=== PATIENT | female | born 2000 | race Caucasian/White ===

== ENCOUNTER 2022-02-27 15:14 | Outpatient (REF) | payer MEDICAID, SELFPAY ==
--- NOTE | 2022-02-27 14:00 | PAPFT_PTH ---
PATIENT: Katharine Guajardo LOC: [facility] U#:[id number] AGE/SX: 21/F ROOM: RE02/27/[address]: Susy Vargas NP : 2000 BED: DIS: 02/27/2022 SPEC #: [id number] RECD: 02/27/22 17:20 STATUS: MEDARDO COSME #: [id number] YONY: 02/27/22 14:[address]: Susy Vargas NP DEPT: [facility] Cytology RECD BY: Deana Narvaez ENTERED: 02/27/22 17:20 SP TYPE: PAPFT OTHR DR: Unknown,Unknown Tissues: 1 - CX/ENDOCX FOR PAP SMEARS Procedures: PAP THIN PREP/UVM Screening Comments: [id number] (CHLAMYDIA/GC)
[2022-02-28 14:57] LABS: Chlamydia Result Negative (Negative); GC Result Negative (Negative)
== END 2022-02-27 15:15 | disposition home or self-care (01) ==
LOC: LBN 15:14
PROVIDERS: Visit Provider Nurse Practitioner Women's Health
DX: Z11.3 Encounter for screening for infections with a predominantly sexual mode of transmission (principal); Z12.4 Encounter for screening for malignant neoplasm of cervix
CPT/HCPCS: 87491; 87591; 88142

== ENCOUNTER 2023-03-06 08:44 | Outpatient (REF) | payer MEDICAID, SELFPAY ==
[2023-03-07 14:12] LABS: Chlamydia Result Negative (Negative); GC Result Negative (Negative)
== END 2023-03-06 08:45 | disposition home or self-care (01) ==
LOC: LBN 08:44
PROVIDERS: Visit Provider Nurse Practitioner Women's Health
DX: Z11.3 Encounter for screening for infections with a predominantly sexual mode of transmission (principal)
CPT/HCPCS: 87491; 87591

== ENCOUNTER 2024-08-08 11:06 | Emergency (ER) | payer SELFPAY ==
[2024-08-08 11:07] VITALS: BP 148/95; PULSE 67; RESP 16; TEMP 36.6; O2SAT 98
--- OUTSIDE RECORDS SUMMARY | 2024-08-08 11:15 | XMS_ITS | Encounter Summary ---
Author Organization [facility] [place] [address] Care Team Providers Care Flat Finisher Name Role Phone Milena Hawkins APRN Primary Care Provider [phone]- [phone] Reason for Referral * Consultation (Routine) - Authorized Specialty Diagnoses / Procedures Referred By Sergio phan Referred To Contact Dermatology Diagnoses Irritant contact dermatitis, unspecified trigger Milena Hawkins APRN [address] [place] [address] [facility] Dermatology [address] [place] [address] Referral ID Status Reason Start Date Expiration Date Visits Requested Visits Authorized [id number] Authorized Consult, Test & Treat PCP Updated and/or Approved 06/25/2025 6 6 Encounter Details Date Type Department Care Team (Late st Contact Info) Description 07/21/2024 Transcribe Orders eDH Incoming Referrals [phone] Milena Hawkins APRN [address] [place], [place] [id number] Irritant contact dermatitis, unspecified trigger Social History Tobacco Use Types Packs/Day Years Used Date Smoking Tobacco: Never Assessed Sex and Gender Information Value Date Recorded Sex Assigned at Not on file Gender Identity Not on file Sexual Orientation Not on file documented as of this encounter Plan of Treatment Scheduled Referrals Name Type Priority Associated Diagnoses Orde r Schedule Referral to Dermatology Outpatient Referral Routine Irritant contact dermatitis, unspecified trigger Ordered: 07/21/2024 documented as of this encounter Visit Diagnoses Diagnosis Irritant contact dermatitis, unspecified trigger documented in this encounter Care Teams Flat Finisher Relationship Specialty Start Date End Date Shruthi, Milena Aguilera, HORTICULTURAL THERAPIST [address] [place] [address] PCP - General Internal Medicine 07/21/24 documented as of this encounter
--- OUTSIDE RECORDS SUMMARY | 2024-08-08 11:15 | XMS_ITS | Encounter Summary ---
Author Organization [facility] Address [address] [place] [address] Care Team Providers Care Economic Analyst Name Role Phone Unavailable Primary Care Provider Unavailabl e Encounter Details Date Type Department Care Team (Late st Contact Info) Description 03/06/2023 Lab Requisition [facility] Pathology & Laboratory Medicine - [facility] [address] [place] [address] Outr Resulting Lab, Provider Social History Tobacco Use Types Packs/Day Years Used Date Smoking Tobacco: Never Assessed Comments Unknown Sex and Gender Information Value Date Recorded Sex Assigned at Not on file Legal Sex Female 15:35 EDT Gender Identity Not on file Sexual Orientation Not on file documented as of this encounter Plan of Treatment Not on file documented as of this encounter Procedures Procedure Name Priority Date/Time Associated Diagnosis Comments CHLAMYDIA/N. GONORRHOEAE AMPLIFIED NUCLEIC ACID Routine 03/06/2023 8:30 EDT documented in this encounter Results * CHLAMYDIA/N. GONORRHOEAE AMPLIFIED RNA (03/06/2023 8:30 EDT) Neisseria gonorrhoeae Result Negative Negative 03/07/2023 14:[address] [facility] Chlamydia trachomatis Result Negative Negative 03/07/2023 14:[address] [facility] Urine URINE / Unknown 03/06/2023 8 :30 EDT 03/06/2023 17:[address] [facility] - 03/07/2023 14:07 EDT A first catch urine specimen is acceptable for detection of Gonorrhea and Chlamydia, but might detect up to 10% fewer infections when compared with vaginal and endocervical swab samples. us Provider Outr Resulting Lab MICROBIOLOGY - GENER AL ORDERABLES Final Result [facility] [address] [place] [address] documented in this encounter Visit Diagnoses Not on filedocumented in this encounter
--- OUTSIDE RECORDS SUMMARY | 2024-08-08 11:15 | XMS_ITS | Referral Summary ---
Author Organization [facility] Address [address] [place] [address] Care Team Providers Care Sorting Supervisor Name Role Phone Unavailable Primary Care Provider Unavailabl e Social History Tobacco Use Types Packs/Day Years Used Date Smoking Tobacco: Never Assessed Comments Unknown Sex and Gender Information Value Date Recorded Sex Assigned at Not on file Legal Sex Female 15:35 EDT Gender Identity Not on file Sexual Orientation Not on file Plan of Treatment Not on file
--- OUTSIDE RECORDS SUMMARY | 2024-08-08 11:15 | XMS_ITS | Clinical Summary ---
Author Organization [facility] Address [facility] [place] [address] Care Team Providers Care Utility Repairer Name Role Phone Milena Hawkins APRN Primary Care Provider +1- [phone] Encounters Date Type Department Care Team Description 07/21/2024 Transcribe Orders eDH Incoming Referrals [phone] Milena Hawkins APRN Irritant contact dermatitis, unspecified trigger from Last 3 Months Social History Tobacco Use Types Packs/Day Years Used Date Smoking Tobacco: Never Assessed Sex and Gender Information Value Date Recorded Sex Assigned at Not on file Gender Identity Not on file Sexual Orientation Not on file Plan of Treatment Health Maintenance Due Date Last Done Comments HPV vaccine (1 - 3-dose series) 2013 HIV screen 2016 Hepatitis C Screening 2016 Hepatitis B vaccine (0-59 yrs) (1) 2017 Tetanus/Diphtheria/Pertussis Vaccines (1 - Tdap) 07/07 PAP Smear 2019 Covid-19 Vaccine ( - 2023- season) 2024 Influenza (Flu) vaccine (1 o f 1 - Influenza standard series) 05/17/2024 Care Teams Utility Repairer Relationship Specialty Start Date End Date Milena Hawkins APRN [address] [place] [address] PCP - General Internal Medicine 07/21/24
--- OUTSIDE RECORDS SUMMARY | 2024-08-08 11:15 | XMS_ITS | Clinical Summary ---
Author Organization [facility] Address [address] [place] [address] Care Team Providers Care Labour Market Economist Name Role Phone Unavailable Primary Care Provider Unavailabl e Social History Tobacco Use Types Packs/Day Years Used Date Smoking Tobacco: Never Assessed Comments Unknown Sex and Gender Information Value Date Recorded Sex Assigned at Not on file Legal Sex Female 15:35 EDT Gender Identity Not on file Sexual Orientation Not on file Plan of Treatment Health Maintenance Due Date Last Done Comments Hepatitis C Screen 2000 Hepatitis B Vaccine (1 of 3 - 19+ 3-dose series) 07/07 COVID-19 Vaccine ( season) 2024
--- OUTSIDE RECORDS SUMMARY | 2024-08-08 11:15 | XMS_ITS | Encounter Summary ---
Author Organization [facility] Address [address] [place] [address] Care Team Providers Care Contact Lens Molder Name Role Phone Unavailable Primary Care Provider Unavailabl e Encounter Details Date Type Department Care Team (Late st Contact Info) Description 02/27/2022 Lab Requisition [facility] Pathology & Laboratory Medicine - [facility] [address] [place] [address] Susy Vargas, CREDIT CONTROL ADMINISTRATOR [address] [place] [id number] Encounter for other general examination Social History Tobacco Use Types Packs/Day Years [...] Procedure Name Priority Date/Time Associated Diagnosis Comments PAP TEST Today 02/27/2022 14:00 EDT Encounter for other general examination CHLAMYDIA/N. GONORRHOEAE AMPLIFIED NUCLEIC ACID, THINPREP Today 02/27/2022 14:00 EDT documented in this encounter Results * PAP TEST (02/27/2022 14:00 EDT) Specimens A. Cervix and/or Endocervix , ThinPrep Imaging System with Manual Evaluation 03/06/2022 11:58 EDT [facility] Specimen Adequacy Satisfactory for Evaluation - transformation zone component absent 03/06/2022 11:58 EDT [facility] General Categorization Negative for intraepithelial lesion or malignancy 03/06/2022 11:58 EDT [facility] Attestation . 03/06/2022 11:58 EDT [facility] at 1158 Clinical History See below 03/06/20 11:58 EDT [facility] Performing Lab [facility] 03/06/2022 11:58 EDT [facility] Scanned Images 03/06/2022 11:58 EDT [facility] Papanicolaou smear specimen (specimen) CERVIX UTERI STRUCTURE / Unknown 02/27/2022 14:00 EDT 02/28/2022 12:25 EDT [facility] A Sam CREDIT CONTROL ADMINISTRATOR PATHOLOGY ORDERABLES Kathie l Result Performing Organization Address City/[facility]/ZIP Co de Phone Number [facility] [address] [place] [address] * CHLAMYDIA/N. GONORRHOEAE AMPLIFIED RNA, THINPREP (02/27/2022 14:00 EDT) Neisseria gonorrhoeae Result Negative Negative 02/28/2022 14:52 EDT [facility] Chlamydia trachomatis Result Negative Negative 02/28/2022 14:52 EDT [facility] Papanicolaou smear specimen (specimen) CERVIX UTERI STRUCTURE / Unknown 02/27/2022 14:00 EDT 02/28/2022 8:31 EDT [facility] Sam CREDIT CONTROL ADMINISTRATOR MICROBIOLOGY - GENERAL OR DERABLES Final Result [facility] [address] [place] [address] documented in this encounter Visit Diagnoses Diagnosis Encounter for other general examination documented in this encounter
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
[2024-08-08] MEDS: Bacitracin 30 GM TUBE TP (11:42)
[2024-08-08 11:58] VITALS: BP 132/96; PULSE 86; RESP 18; TEMP 36.8; O2SAT 98
== END 2024-08-08 11:58 | disposition home or self-care (01) ==
PROVIDERS: Emergency Provider Registered Nurse Emergency; PCP Nurse Practitioner Family
DX: L24.9 Irritant contact dermatitis, unspecified cause (principal)
CPT/HCPCS: 99283

== ENCOUNTER 2024-10-09 17:08 | Emergency (ER) | payer SELFPAY ==
[2024-10-09 17:09] VITALS: BP 154/98; PULSE 87; RESP 16; TEMP 36.5; O2SAT 100
--- NOTE | 2024-10-09 17:30 | RT.EKG_ITS ---
APPROVED REPORT Exam: Resting ECG Reason for Exam: dizzy Patient Location: E HR:78 bpm ECG Measurements Heart Rate 78 AXIS MI 179 P 41 QRSd 85 QRS 50 QT 364 T 22 QTc 414 Conclusion Sinus rhythm, rate 78 No interval abnormalities No STEMI No priors available for comparison
[2024-10-09 18:14] LABS: Abs Immature Grans 0.01 10^3/uL (0.0-0.06); Absolute Basophil Count 0.03 10^3/uL (0.0-0.2); Absolute Eosinophil Count 0.15 10^3/uL (0.0-0.7); Absolute Lymphocyte Count 2.18 10^3/uL (1.2-3.4); Absolute Monocyte Count 0.45 10^3/uL (0.1-0.8); Absolute Neutrophil Count 4.91 10^3/uL (1.2-6.7); Basophils % 0.4 %; Eosinophils % 1.9 %; HCT 48.8 % (36.0-46.0); HGB 15.5 g/dL (11.2-15.7); Immature Grans % 0.1 %; Lymphocytes % 28.2 %; MCH 26.6 pg (27.0-33.0); MCHC 31.8 % (32.0-36.0); MCV 84 fL (80-95); MPV 10.9 fL (8.0-11.0); Monocytes % 5.8 %; Neutrophils % 63.6 %; Platelet Count 337 10^3/uL (130-400); RBC 5.82 10^6/uL (3.93-5.22); RDW 13.6 % (11.7-14.6); RDW-SD 41.9 fL; WBC 7.73 10^3/uL (4.4-10.8)
[2024-10-09] MEDS: Meclizine 25 MG TAB PO (18:20)
[2024-10-09 18:35] LABS: HCG Qual (Serum) Negative
[2024-10-09 18:45] LABS: ALT 42 U/L (14-59); AST 21 U/L (15-37); Albumin 4.4 g/dL (3.4-5.0); Alkaline Phosphatase 99 U/L (46-116); Anion Gap 7.6 mmol/L (3-11); BUN 14 mg/dL (7-18); CO2 29.4 mmol/L (21.0-32.0); CREATININE 0.9 mg/dL (0.55-1.02); Calcium 9.6 mg/dL (8.5-10.1); Chloride 104 mmol/L (98-107); Estimated GFR 90.42 (mL/min/1.73m2); Glucose 91 mg/dL (74-106); Magnesium 1.9 mg/dL (1.8-2.4); Potassium 3.6 mmol/L (3.5-5.1); Sodium 141 mmol/L (136-145); TSH (W/Ref FT4) 1.62 uIU/mL (0.36-3.74); Total Protein 8.4 g/dL (6.4-8.2)
[2024-10-09 19:29] VITALS: BP 172/101; PULSE 75; RESP 14; TEMP 36.6; O2SAT 99
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
[2024-10-09 19:44] VITALS: BP 172/101; PULSE 75; RESP 12; TEMP 36.6; O2SAT 99
== END 2024-10-09 19:43 | disposition home or self-care (01) ==
PROVIDERS: Emergency Provider Physician Assistant; PCP Nurse Practitioner Family
DX: R42 Dizziness and giddiness (principal); R53.81 Other malaise; F43.10 Post-traumatic stress disorder, unspecified
CPT/HCPCS: 36416; 80053; 82962; 93005; 99284; 83735; 84443; 84703; 85025; 93010; 99283